=== PATIENT | female | born 1990 | race Caucasian/White ===

== ENCOUNTER 2022-03-19 19:11 | Inpatient (IN) | payer OTHER ==
[~2022-03-19] VITALS: Ht 175.3 cm; Wt 117.0 kg
[2022-03-19 20:11] LABS: BASOPHILS % 0.5 % (0.0-1.0); EOSINOPHILS # (AUTO) 0.1 (0.0-0.4); EOSINOPHILS % 0.8 % (0.0-6.0); HEMATOCRIT 38.6 % (34.2-44.1); HEMOGLOBIN 12.9 g/dL (12.0-16.0); LYMPHOCYTES # (AUTO) 2.5 (1.0-3.2); LYMPHOCYTES % 31.2 % (18.0-39.1); MEAN CORPUSCULAR HEMOGLOBIN 27.6 pg (28-32); MEAN CORPUSCULAR HGB CONC 33.4 g/dL (31-35); MEAN CORPUSCULAR VOLUME 82.5 fL (81-99); MONOCYTES # (AUTO) 0.4 (0.2-0.8); MONOCYTES % 4.6 % (4.4-11.3); NEUTROPHILS % 62.6 % (38.7-80.0); PLATELET COUNT 314 x10e3/uL (140-360); RED BLOOD COUNT 4.68 x10e6/uL (3.6-5.1); RED CELL DISTRIBUTION WIDTH 12.3 % (11.7-14.4)
[2022-03-19 20:21] LABS: INR 0.98; PROTHROMBIN TIME 13.9 seconds (11.9-14.5)
[2022-03-19 20:22] LABS: PARTIAL THROMBOPLASTIN TIME 34.3 seconds (23.8-35.5)
[2022-03-19 20:29] LABS: ALBUMIN 4.1 g/dL (3.5-5.0); ALBUMIN/GLOBULIN RATIO 0.9 (0.8-2.0); ANION GAP 13.8 mmol/L (8-16); CALCIUM 9.1 mg/dL (8.4-10.2); CREATININE, SERUM 0.94 mg/dL (0.57-1.11); POTASSIUM 4.8 mmol/L (3.5-5.1)
[2022-03-19] MEDS ORDERED: SODIUM CHLORIDE 0.9% 100 ML ONE (21:45)
[2022-03-19] MEDS ORDERED: IOPAMIDOL 370 MG/ML 100 ML INFUS..BTL INJ ONE (21:47)
[2022-03-19] MEDS ORDERED: ONDANSETRON HCL INJ 2MG/ML 2ML 2 MG/ML VIAL IV STA (23:51)
[2022-03-20] MEDS ORDERED: Morphine 4mg INJECTION 4 MG/ML INJ IV ONE
[2022-03-20] MEDS: SODIUM CHLORIDE 0.9% 1000ML 1,000 ML IV SCH ×3 (02:25→16:00)
[2022-03-20] MEDS: Morphine 4mg INJECTION 4 MG/ML INJ IV PRN ×3 (04:48→14:04)
[2022-03-20] MEDS: ONDANSETRON HCL INJ 2MG/ML 2ML 2 MG/ML VIAL IV PRN ×4 (04:49→22:37)
[2022-03-20] MEDS ORDERED: PNEUMOCOCCAL VACCINE POLYVALENT 23 MCG/0.5 ML VIAL IM SCH (04:54)
[2022-03-20 04:59] VITALS: BP 135/91
[2022-03-20] MEDS ORDERED: QUETIAPINE FUM100 MG PO (05:05)
[2022-03-20] MEDS ORDERED: OMEPRAZOLE40 MG PO (05:05)
[2022-03-20] MEDS ORDERED: MINIPRESS2 MG PO (05:05)
[2022-03-20] MEDS ORDERED: FOLIC ACID-VIT1 EACH PO (05:05)
[2022-03-20] MEDS ORDERED: TOPIRAMATE100 MG PO (05:05)
[2022-03-20] MEDS ORDERED: PROPRANOLOL HCL10 MG PO (05:05)
[2022-03-20] MEDS ORDERED: LEVETIRACETAM500 MG PO (05:05)
[2022-03-20] MEDS ORDERED: DOXEPIN HCL25 MG PO (05:05)
[2022-03-20 07:32] LABS: HEMATOCRIT 33.7 % (34.2-44.1); HEMOGLOBIN 11.4 g/dL (12.0-16.0)
[2022-03-20 07:56] LABS: ALBUMIN 3.5 g/dL (3.5-5.0); CALCIUM 8.5 mg/dL (8.4-10.2); CREATININE, SERUM 0.81 mg/dL (0.57-1.11)
[2022-03-20 08:00] VITALS: BP 113/62
[2022-03-20 08:09] VITALS: BP 113/62
[2022-03-20] MEDS ORDERED: PEG (High)/E-LYTE SOLN 4,000 ML BTL PO ONE (12:00)
[2022-03-20 12:01] VITALS: BP 110/62
[2022-03-20 14:18] LABS: HEMOGLOBIN 10.7 g/dL (12.0-16.0)
[2022-03-20 16:32] VITALS: BP 109/51
[2022-03-20] MEDS: HYDROMORPHONE 1MG/1ML INJ IV PRN ×2 (18:08→22:40)
[2022-03-20 18:56] LABS: HEMATOCRIT 32.9 % (34.2-44.1); HEMOGLOBIN 10.9 g/dL (12.0-16.0)
[2022-03-20] MEDS ORDERED: BISACODYL 5 MG TAB EC PO ONE (19:20)
[2022-03-20] MEDS ORDERED: BISACODYL 5 MG TAB EC PO SCH (19:30)
[2022-03-20 20:00] VITALS: BP 114/72
[2022-03-20] MEDS: BISACODYL 5 MG TAB EC PO SCH ×3 (20:14→21:31)
[2022-03-20] MEDS ORDERED: CITRATE OF MAGNESIA 300ML BOTTLE PO ONE (23:45)
[2022-03-21] VITALS (8 sets, daily range): BP systolic 98–120; BP diastolic 59–76
[2022-03-21 00:10] LABS: HEMATOCRIT 34.9 % (34.2-44.1); HEMOGLOBIN 11.4 g/dL (12.0-16.0)
[2022-03-21] MEDS ORDERED: ONDANSETRON HCL INJ 2MG/ML 2ML 2 MG/ML VIAL IV STA (01:01)
[2022-03-21] MEDS: HYDROMORPHONE 1MG/1ML INJ IV PRN ×4 (03:44→23:19)
[2022-03-21] MEDS: SODIUM CHLORIDE 0.9% 1000ML 1,000 ML IV SCH ×3 (03:48→20:29)
[2022-03-21 06:08] LABS: BASOPHILS % 0.6 % (0.0-1.0); EOSINOPHILS # (AUTO) 0.1 (0.0-0.4); EOSINOPHILS % 1.4 % (0.0-6.0); HEMATOCRIT 39.7 % (34.2-44.1); LYMPHOCYTES # (AUTO) 2.6 (1.0-3.2); LYMPHOCYTES % 36.7 % (18.0-39.1); MEAN CORPUSCULAR HEMOGLOBIN 27.4 pg (28-32); MEAN CORPUSCULAR HGB CONC 32.7 g/dL (31-35); MEAN CORPUSCULAR VOLUME 83.6 fL (81-99); MONOCYTES # (AUTO) 0.4 (0.2-0.8); MONOCYTES % 6.2 % (4.4-11.3); NEUTROPHILS # (AUTO) 3.9 (2.1-6.9); PLATELET COUNT 319 x10e3/uL (140-360); RED BLOOD COUNT 4.75 x10e6/uL (3.6-5.1); RED CELL DISTRIBUTION WIDTH 12.3 % (11.7-14.4)
[2022-03-21] MEDS: ONDANSETRON HCL INJ 2MG/ML 2ML 2 MG/ML VIAL IV PRN ×2 (06:11→23:30)
[2022-03-21 06:32] LABS: ANION GAP 14.8 mmol/L (8-16); CALCIUM 9.1 mg/dL (8.4-10.2); CREATININE, SERUM 0.91 mg/dL (0.57-1.11); POTASSIUM 3.8 mmol/L (3.5-5.1)
[2022-03-21] MEDS ORDERED: CITRATE OF MAGNESIA 300ML BOTTLE PO ONE (07:00)
[2022-03-21] MEDS ORDERED: FENTANYL CITRATE/PF 100MCG/2 ML INJ ONE (08:19)
[2022-03-21] MEDS ORDERED: MIDAZOLAM HCL 2 MG/2 ML VIAL ONE (08:19)
[2022-03-21] MEDS ORDERED: GLUCAGON FOR INJ 1 MG VIAL ONE (13:32)
[2022-03-21] MEDS ORDERED: LIDOCAINE HCL 2% LOCAL INJ 5 ML SDV VIAL INJ ONE (13:32)
[2022-03-21] MEDS: HYDROCORTISONE ACETATE 25 MG/SUPP.RECT SUPP RC SCH (17:03)
[2022-03-21 17:50] LABS: HEMATOCRIT 36.5 % (34.2-44.1); HEMOGLOBIN 12.1 g/dL (12.0-16.0)
[2022-03-21] MEDS: CHLORDIAZEPOXIDE/CLIDINIUM 1 CAP PO SCH ×2 (17:57→20:28)
[2022-03-22 00:01] VITALS: BP 115/68
[2022-03-22 05:01] LABS: HEMATOCRIT 34.3 % (34.2-44.1); HEMOGLOBIN 11.2 g/dL (12.0-16.0)
[2022-03-22] MEDS: HYDROMORPHONE 1MG/1ML INJ IV PRN ×2 (05:49→10:57)
[2022-03-22 05:54] VITALS: BP 100/74
[2022-03-22 07:55] VITALS: BP 109/58
[2022-03-22] MEDS: HYDROCORTISONE ACETATE 25 MG/SUPP.RECT SUPP RC SCH (08:35)
[2022-03-22] MEDS: CHLORDIAZEPOXIDE/CLIDINIUM 1 CAP PO SCH ×2 (08:35→12:20)
[2022-03-22 08:59] VITALS: BP 109/58
[2022-03-22] MEDS: ONDANSETRON HCL INJ 2MG/ML 2ML 2 MG/ML VIAL IV PRN (10:57)
[2022-03-22 11:57] VITALS: BP 111/58
== END 2022-03-22 16:22 | disposition home or self-care (01) | DRG 395 ==
LOC: ER 19:25 → ERHOLD 23:57 → MED/SURG 03-20 01:13 → OBSVTOIN 03-21 15:50
PROC: 0DBM8ZX Excision of Descending Colon, Via Natural or Artificial Opening Endoscopic, Diagnostic (ICD-10-PCS; principal; 2022-03-21 15:17)
DX: K60.2 Anal fissure, unspecified (principal); F25.9 Schizoaffective disorder, unspecified; K63.5 Polyp of colon; K64.8 Other hemorrhoids; K29.70 Gastritis, unspecified, without bleeding; E66.9 Obesity, unspecified; D64.9 Anemia, unspecified; F17.290 Nicotine dependence, other tobacco product, uncomplicated; L40.9 Psoriasis, unspecified; R07.89 Other chest pain; Z68.38 Body mass index [BMI] 38.0-38.9, adult; Z88.8 Allergy status to other drugs, medicaments and biological substances; Z20.822 Contact with and (suspected) exposure to COVID-19; Z82.3 Family history of stroke; Z82.49 Family history of ischemic heart disease and other diseases of the circulatory system; Z83.3 Family history of diabetes mellitus
CPT/HCPCS: 36415; 45378; 45380; 74174; 80048; 80053; 84702; 85014; 85018; 85025; 85610; 85730; 86850; 86900; 88305; 93005; 93306; 96361; 99284; G0378; J1170; J1610; J2001; J2250; J2270; J2405; J3010; J7030; J7050; Q9967